=== PATIENT | female | born 1955 | race Hispanic/Latino ===

== ENCOUNTER 2024-12-10 12:24 | Emergency (ER) | payer OTHER, MEDICARE ==
[~2024-12-10] VITALS: Ht 586.7 cm; Wt 77.6 kg
[~2024-12-10 12:24] MED LIST: ACET-2079 PO; ALEN70TA80 PO; GLIP10TA16 PO; LISI5TAB21 PO; METF-446 PO; NAPR-1023 PO; SIMV40TA59 PO; SULF1TAB42 PO
[2024-12-10 12:50] LABS: APPEARANCE,URINE CLEAR (CLEAR); BILIRUBIN,URINE NEGATIVE (NEGATIVE); COLOR,URINE COLORLESS (YELLOW); GLUCOSE, URINE (UA) >=1000 mg/dL (NEGATIVE); KETONES,URINE NEGATIVE (NEGATIVE); LEUKOCYTE ESTERASE ,URINE NEGATIVE Leu/uL (NEGATIVE); NITRATE,URINE NEGATIVE (NEGATIVE); OCCULT BLOOD,URINE NEGATIVE (NEGATIVE); UROBILINOGEN,URINE 0.2 mg/dL (0.2-1.0)
[2024-12-10 12:51] LABS: ADD UA MICROSCOPIC YES; PROTEIN,URINE NEGATIVE (NEGATIVE)
[2024-12-10 12:52] LABS: RBC,URINE 0-1 /HPF (0-1); SQUAMOUS EPITHELIAL CELL,UR RARE /HPF (0-2); WBC,URINE 0-1 /HPF (0-1)
[2024-12-10 13:10] VITALS: BP 193/84; PULSE 98; RESP 18; TEMP 98.5
[2024-12-10] MEDS ORDERED: CLOT15CR23 TP (13:14)
[2024-12-10] MEDS ORDERED: FLUC150T48 PO (13:14)
--- NOTE | 2024-12-10 13:15 | ERN ---
General Chief Complaint: Urinary Frequency Stated Complaint: VAGINAL PAIN History of Present Illness Initial Comments 69-year-old female who presents for vaginal itching beginning earlier today. She reports some dysuria. No STI risk. No systemic illness. No flank pain. No vomiting or fevers. Allergies: Coded Allergies: No Allergy Information Available (Verified Allergy, Unknown, 12/05/15) No Known Drug Allergies (Unverified Allergy, Unknown, 12/05/15) Home Meds Active Scripts Sulfamethoxazole/Trimethoprim (Bactrim Ds Tablet) 1 Each Tablet, 1 TAB PO BID, #20 TAB Prov:LOY BERNARD MD 12/09/15 Reported Medications Lisinopril (Lisinopril) 5 Mg Tablet, 5 MG PO DAILY, TAB 12/05/15 Acetaminophen with Codeine (Acetaminophen-Cod #3 Tablet) 1 Each Tablet, 1 EACH PO Q6H for PAIN, TAB 12/05/15 Simvastatin (ZOCOR) 40 Mg Tablet, 40 MG PO DAILY, TAB 12/05/15 Metformin HCl (Metformin HCl) 1,000 Mg Tablet, 1000 MG PO BIDMEALS, TAB 12/05/15 Naproxen (Naproxen) 500 Mg Tablet, 500 MG PO BID, TAB 12/05/15 Alendronate Sodium (Alendronate Sodium) 70 Mg Tablet, 70 MG PO QWEEK, TAB 12/05/15 Glipizide (Glipizide) 10 Mg Tablet, 10 MG PO BID, TAB 12/05/15 ROS Dictation CONSTITUTIONAL: No chills, no fever, no weakness, no diaphoresis, no malaise. HEAD/FACE: No signs of trauma. EENT: No eye pain, no blurred vision, no tearing, no double vision, no ear p ain, no ear discharge, no nose pain, no nasal congestion, no throat pain, no throat swelling, no mouth pain. RESPIRATORY: No cough, no orthopnea, no SOB, no stridor, no wheezing. CARDIOVASCULAR: No chest pain, no edema, no palpitations, no syncope. GASTROINTESTINAL/ABDOMINAL: No abdominal pain, no constipation, no diarrhea, no nausea, no vomiting. GENITOURINARY: Vaginal pain and itchiness MUSCULOSKELETAL: No back pain, no gout, no joint pain, no joint swelling, no muscle pain, no muscle stiffness, no neck pain. INTEGUMENTARY: No change in color, no change in hair/nails, no dryness, no lesion, no lumps, no rash. NEUROLOGICAL/PSYCH: No anxiety, not depressed, no emotional problem, no headache, no numbness, no pre-existing deficit, no history of seizures, no tremors, no weakness. HEMATOLOGIC/LYMPHATIC: Not anemic, no history of blood clots, no apparent bleeding, no bruising, glands not swollen. All Systems Negative, Except as Noted. Physical Exam Physical Exam Dictation VITAL SIGNS: Reviewed. GENERAL APPEARANCE: Alert, oriented x3, no acute distress HEAD AND FACE: Non-traumatic. EYES: PERRL, pink conjunctivas, eyelid no trauma, anterior chamber clear. EARS: Pinnas intact and no signs of trauma or erythema. Ear canals clear and no discharge. TMs no erythema. NOSE: No discharge, no bleeding. OROPHARYNX: Mouth normal, teeth no caries, tongue pink. Pharynx clear, no erythema. Tonsils no exudates, no abscesses noted. Mucous membrane moist. NECK: Supple, non-tender, no thyromegaly, no masses, no JVD, no bruits. BREAST: Deferred. CHEST: No tenderness, no crepitus, no paradoxical movement, no retractions. LUNGS: Clear, well-ventilated, symmetric, no rales, no wheezing, no rhonchi, no stridor, good breath sounds bilaterally. HEART: Regular rate, regular rhythm, no murmur, no gallops. VASCULAR: No peripheral edema. ABDOMEN: Soft, positive bowel sounds, nondistended, no guarding, nontender, no rebound, no masses no hepatomegaly, no splenomegaly, no Bruno's sign, no hernias. RECTAL: Deferred. GENITAL: Deferred. NEUROLOGICAL: Normal speech, gross motor function intact, gross sensory function intact. MUSCULOSKELETAL: Neck nontender, full range of motion, back nontender, full range of motion. EXTREMITIES: Nontender, full range of motion. SKIN: Color pink, dry, no turgor, no rash, no lacerations, no abrasions, no contusions. LYMPHATICS: Deferred. Results Laboratory and Microbiology Lab and Micro Result Laboratory Tests Test 12/10/24 12:35 Urine Color COLORLESS (YELLOW) Urine Appearance CLEAR (CLEAR) Urine pH 5.0 (5.0-8.0) Urine Specific [place] 1.015 (1.001-1.031) Urine Protein NEGATIVE mg/dL (NEGATIVE) Urine Glucose (UA) >=1000 mg/dL (NEGATIVE) H Urine Ketones NEGATIVE mg/dL (NEGATIVE) Urine Occult Blood NEGATIVE (NEGATIVE) Urine Nitrate NEGATIVE (NEGATIVE) Urine Bilirubin NEGATIVE mg/dL (NEGATIVE) Urine Urobilinogen 0.2 mg/dL (0.2-1.0) Urine Leukocyte Esterase NEGATIVE Ayesha/uL Urine RBC 0-1 /HPF (0-1) Urine WBC 0-1 /HPF (0-1) Urine Squamous Epithelial Cells RARE /HPF (0-2) Urine Bacteria None /HPF (None Seen) MDM CC: Vaginal pain itching Historian: Patient No comorbidities Limitations by social determinants: Soft pain Vital signs are stable Differential diagnosis: UTI versus yeast infection Urinalysis unremarkable other than glucose We will treat as yeast infection recommend PCP follow up. ED Course Orders Procedure Category Date Status Time Urinalysis Profile LAB 12/10/24 Complete 12:34 DX & DISP Disposition: Discharge Departure Impression: Primary Impression: Yeast infection Condition: Stable Scripts Clotrimazole (Clotrimazole) 1 % Cream..g. 1 APPL TP BID for 7 Days, #15 GM 0 Refills apply to affected area(s) Prov: AMBERLY COHEN DO 12/10/24 Fluconazole (Fluconazole) 150 Mg Tablet 1 TAB PO ONCE for 1 Day, #1 TAB 0 Refills Prov: AMBERLY COHEN DO 12/10/24 Additional Instructions: Your symptoms are consistent with a yeast infection. Your urinalysis does not show any signs of bladder infection. I have prescribed you oral fluconazole. Take one dose when you fill this prescription. I have prescribed clotrimazole cream. You can apply this twice per day until your symptoms improve. Please follow up with the primary doctor. Referrals: SELF,REFERRAL (PCP) AMBERLY COHEN DO Dec 10, 2024 13:15
== END 2024-12-10 13:24 | disposition home or self-care (01) ==
LOC: EDH 12:24
DX: B37.9 Candidiasis, unspecified (principal); Z79.84 Long term (current) use of oral hypoglycemic drugs; Z79.899 Other long term (current) drug therapy
CPT/HCPCS: 81001; 99283